=== PATIENT | female | born 1990 | race Hispanic/Latino ===

== ENCOUNTER 2021-10-05 02:55 | Emergency (ER) | payer OTHER ==
[~2021-10-05] VITALS: Ht 162.6 cm; Wt 117.9 kg
[2021-10-05] MEDS ORDERED: ONDANSETRON 4MG INJ ONE (04:05)
[2021-10-05 04:14] LABS: ALCOHOL, BLOOD < 3 mg/dL (0-10)
[2021-10-05 04:16] LABS: SALICYLATE < 2.8 mg/dL (2.8-20.0)
[2021-10-05 04:17] LABS: ACETAMINOPHEN < 1 mcg/mL (10-30)
[2021-10-05] MEDS ORDERED: DICYCLOMINE HCL 10 MG/5 ML ML PO ONE (04:30)
[2021-10-05] MEDS ORDERED: ONDANSETRON 4MG INJ IVP ONE (04:30)
[2021-10-05] MEDS ORDERED: MAG/ALUM/SIMETH 30 ML UDCUP PO ONE (04:30)
[2021-10-05] MEDS ORDERED: LIDOCAINE HCL 2% VISCOUS 15 ML UDCUP PO ONE (04:30)
[2021-10-05 04:41] LABS: BASOPHILS % (AUTO) 0.4 % (0.0-5.0); EOSINOPHILS % (AUTO) 0.1 % (0.0-8.0); LYMPHOCYTES % (AUTO) 16.1 % (21.0-51.0); MEAN CORPUSCULAR HEMOGLOBIN 27.4 pg (27.0-33.0); MEAN CORPUSCULAR HGB CONC 31.5 g/dL (32.0-36.0); MEAN CORPUSCULAR VOLUME 86.9 fL (79-99); MONOCYTES % (AUTO) 3.8 % (3.0-13.0); NEUTROPHILS % (AUTO) 79.2 % (40.0-77.0); PLATELET COUNT (AUTO) 370 K/uL (130-400); RED BLOOD CELL COUNT(AUTO) 4.49 MIL/uL (4.00-5.50); RED CELL DISTRIBUTION WIDTH 14.5 % (11.0-15.5)
[2021-10-05 04:42] LABS: APPEARANCE,URINE Clear (CLEAR); BILIRUBIN,URINE Negative (NEGATIVE); COLOR,URINE Yellow (YELLOW); GLUCOSE, URINE (UA) Negative (NEGATIVE); KETONES,URINE Negative (NEGATIVE); LEUKOCYTE ESTERASE ,URINE Negative (NEGATIVE); NITRATE,URINE Negative (NEGATIVE); OCCULT BLOOD,URINE Negative (NEGATIVE); PH,URINE 5.5 (5.0-8.0); PROTEIN,URINE Trace mg/dL (NEGATIVE); UROBILINOGEN,URINE 0.2 mg/dL (0.2-1.0)
[2021-10-05 04:45] LABS: CREATININE 0.9 mg/dL (0.5-1.5); POTASSIUM 3.7 mmol/L (3.5-5.1)
[2021-10-05 04:49] LABS: AMPHET/METH SCREEN,URINE NEGATIVE (NEGATIVE); BARBITURATE SCREEN, URINE NEGATIVE (NEGATIVE); BENZODIAZEPINES SCREEN,URINE NEGATIVE (NEGATIVE); CANNABINOID SCREEN,URINE NEGATIVE (NEGATIVE); COCAINE SCREEN,URINE NEGATIVE (NEGATIVE); OPIATE SCREEN,URINE NEGATIVE (NEGATIVE); PHENCYCLIDINE SCREEN,URINE NEGATIVE (NEGATIVE)
[2021-10-05 04:50] LABS: ALBUMIN 3.9 g/dL (3.5-5.0); BILIRUBIN,TOTAL 0.2 mg/dL (0.2-1.0); TOTAL PROTEIN, SERUM 8.5 g/dL (6.0-8.3)
[2021-10-05 05:25] VITALS: BP 143/71
[2021-10-05] MEDS ORDERED: MAG-55 PO (05:30)
[2021-10-05] MEDS ORDERED: ESOM20SU PO (05:30)
== END 2021-10-05 05:49 | disposition home or self-care (01) ==
LOC: EDH 02:55
DX: K29.70 Gastritis, unspecified, without bleeding (principal); K21.9 Gastro-esophageal reflux disease without esophagitis; Z79.899 Other long term (current) drug therapy
CPT/HCPCS: 36415; 80053; 80305; 81003; 81025; 83690; 85025; 96374; 99284; G0481; J2405

== ENCOUNTER 2021-11-04 04:22 | Emergency (ER) | payer SELFPAY ==
[~2021-11-04] VITALS: Ht 162.6 cm; Wt 117.9 kg
[~2021-11-04 04:22] MED LIST: ESOM20SU PO; MAG-55 PO
[2021-11-04 04:47] LABS: APPEARANCE,URINE Cloudy (CLEAR); BILIRUBIN,URINE Negative (NEGATIVE); COLOR,URINE Yellow (YELLOW); GLUCOSE, URINE (UA) Negative (NEGATIVE); KETONES,URINE Trace mg/dL (NEGATIVE); LEUKOCYTE ESTERASE ,URINE Negative (NEGATIVE); NITRATE,URINE Negative (NEGATIVE); OCCULT BLOOD,URINE Negative (NEGATIVE); PH,URINE 7.5 (5.0-8.0); PROTEIN,URINE Trace mg/dL (NEGATIVE); UROBILINOGEN,URINE 0.2 mg/dL (0.2-1.0)
[2021-11-04 04:51] LABS: HCG,QUAL RESULT NEGATIVE (NEGATIVE)
[2021-11-04 04:56] LABS: AMORPHOUS SEDIMENT,UR Moderate /LPF (None Seen); BACTERIA,URINE None Seen /HPF (None Seen); FINE GRANULAR CASTS,URINE 0-2 /LPF (None Seen); RBC,URINE 0-1 /HPF (0-1); SQUAMOUS EPITHELIAL CELL,UR Rare /HPF (0-2); WBC,URINE 0-1 /HPF (0-1)
[2021-11-04] MEDS ORDERED: 0.9%NACL 1000ML 1,000 ML IV ONE (05:00)
[2021-11-04] MEDS ORDERED: PANTOPRAZOLE 40 MG/VIAL IVP ONE (05:00)
[2021-11-04] MEDS ORDERED: METOCLOPRAMIDE 10 MG/2 ML VIAL IVP ONE (05:00)
[2021-11-04] MEDS ORDERED: ONDANSETRON 4MG INJ IVP ONE (05:00)
[2021-11-04] MEDS ORDERED: FAMOTIDINE 20MG VIAL IV ONE (05:00)
[2021-11-04 05:59] LABS: CREATININE 0.8 mg/dL (0.5-1.5); POTASSIUM 4.4 mmol/L (3.5-5.1)
[2021-11-04 06:06] LABS: BILIRUBIN,TOTAL 0.3 mg/dL (0.2-1.0); TOTAL PROTEIN, SERUM 8.4 g/dL (6.0-8.3)
[2021-11-04] MEDS ORDERED: LIDOCAINE HCL 2% VISCOUS 15 ML UDCUP ONE (07:21)
[2021-11-04] MEDS ORDERED: MAG/ALUM/SIMETH 30 ML UDCUP ONE (07:21)
[2021-11-04] MEDS ORDERED: LIDOCAINE HCL 2% VISCOUS 15 ML UDCUP PO SCH (07:22)
[2021-11-04] MEDS ORDERED: MAG/ALUM/SIMETH 30 ML UDCUP PO SCH (07:23)
[2021-11-04 07:36] LABS: BASOPHILS % (AUTO) 0.4 % (0.0-5.0); EOSINOPHILS % (AUTO) 0.1 % (0.0-8.0); HEMATOCRIT 38.6 % (36-48); LYMPHOCYTES % (AUTO) 11.7 % (21.0-51.0); MEAN CORPUSCULAR HEMOGLOBIN 27.1 pg (27.0-33.0); MEAN CORPUSCULAR HGB CONC 30.8 g/dL (32.0-36.0); MEAN CORPUSCULAR VOLUME 87.9 fL (79-99); MONOCYTES % (AUTO) 4.1 % (3.0-13.0); NEUTROPHILS % (AUTO) 83.4 % (40.0-77.0); PLATELET COUNT (AUTO) 352 K/uL (130-400); RED BLOOD CELL COUNT(AUTO) 4.39 MIL/uL (4.00-5.50); RED CELL DISTRIBUTION WIDTH 14.7 % (11.0-15.5); WHITE BLOOD COUNT (AUTO) 16.5 K/uL (4.8-10.8)
[2021-11-04] MEDS ORDERED: 0.9%NACL 1000ML 1,000 ML IV SCH (08:00)
[2021-11-04] MEDS ORDERED: ONDA4TAB10 PO (08:00)
[2021-11-04] MEDS ORDERED: METO-296 PO (08:00)
[2021-11-04] MEDS ORDERED: PANT40TA PO (08:00)
[2021-11-04] MEDS ORDERED: DiphenhydrAMINE HCL 50 MG/ML VIAL IV SCH (08:00)
[2021-11-04] MEDS ORDERED: DICY20TA2 PO (08:00)
[2021-11-04 09:07] VITALS: BP 109/51
== END 2021-11-04 09:25 | disposition home or self-care (01) ==
LOC: EDH 04:22
DX: A05.9 Bacterial foodborne intoxication, unspecified (principal); K29.70 Gastritis, unspecified, without bleeding; E86.9 Volume depletion, unspecified; Z79.899 Other long term (current) drug therapy
CPT/HCPCS: 36415; 80053; 81001; 81025; 83690; 96361; 85025; 96374; 96375; 99284; C9113; J1200; J2405; J2765; J3490